=== PATIENT | female | born 1985 | race Hispanic/Latino ===

== ENCOUNTER 2023-06-12 16:22 | Emergency (ER) | payer BC ==
[2023-06-12] MEDS ORDERED: Famotidine 20 MG TAB ONE (16:55)
[2023-06-12] MEDS ORDERED: methylPREDNISolone Sod Succ 40 MG VIAL ONE (16:55)
== END 2023-06-12 18:00 | disposition home or self-care (01) ==
LOC: CSHERS 16:22
DX: L50.9 Urticaria, unspecified (principal)
CPT/HCPCS: 96372; J2920